=== PATIENT | male | born 1990 | race African-American/Black ===

== ENCOUNTER 2019-11-27 01:13 | Emergency (ER) | payer SELFPAY ==
[2019-11-27] MEDS ORDERED: Ondansetron 4 MG/2 ML SDV IVPUSH ONE (01:32)
[2019-11-27] MEDS ORDERED: Pantoprazole 40 MG Vial IVPUSH ONE (01:33)
--- NOTE | 2019-11-27 01:36 | EDM.PDOC ---
ED HPI GENERAL MEDICAL PROBLEM - General Chief Complaint: Gastrointestinal Problem Stated Complaint: [facility] Time Seen by Provider: 11/27/19 01:21 Source of Information: Reports: Patient History Limitations: Reports: No Limitations - History of Present Illness INITIAL COMMENTS - FREE TEXT/NARRATIVE: This is a 29-year-old male. Tonight he had what is called sloppy Smith. Apparently was made about 2 days ago and they have not been keeping it refrigerated and did have some meat and it. After eating it he began to feel somewhat nauseated and was on the verge of vomiting when he passed out. When he awoke he did vomit and was having some abdominal pain. He did drink 2 [place] Light oranges prior to vomiting as well. He says he is feeling a little better now although he still has a lot of epigastric pain. He denies any other acute symptoms. He has had no fever no chills no cough no congestion and no recent illnesses. Epigastric Pain Score (Numeric/FACES): 8 - Related Data Allergies Allergy/AdvReac Type Severity Reaction Status Date / Time No Known Allergies Allergy Verified 11/27/19 01:20 Home Meds: Home Meds Ondansetron [Zofran] 4 mg PO Q6H PRN #12 tab 11/27/19 [Rx] Past Medical History Oncologic (Cancer) History: Reports: Other (See Below) Other Oncologic History: cancer when he was 14 years old Social & Family History - Tobacco Use Smoking Status *Q: Former Smoker Used Tobacco, but Quit: Yes Month/Year Tobacco Last Used: 11/2019 - Recreational Drug Use Recreational Drug Use: Yes Drug Use in Last 12 Months: Yes Recreational Drug Type: Reports: Marijuana/Hashish Recreational Drug Use Frequency: Socially ED ROS GENERAL - Review of Systems Review Of Systems: See Below Constitutional: Denies: Fever, Chills HEENT: Reports: No Symptoms Respiratory: Denies: Shortness of Breath, Cough Cardiovascular: Reports: No Symptoms Endocrine: Reports: No Symptoms GI/Abdominal: Reports: Abdominal Pain, Nausea, Vomiting. Denies: Diarrhea : Reports: No Symptoms Musculoskeletal: Reports: No Symptoms Skin: Reports: No Symptoms Neurological: Reports: No Symptoms Psychiatric: Reports: No Symptoms Hematologic/Lymphatic: Reports: No Symptoms ED EXAM, GI/ABD - Physical Exam Exam: See Below Exam Limited By: No Limitations General Appearance: Alert, WD/WN, No Apparent Distress Eyes: Bilateral: Normal Appearance Ears: Normal External Exam, Normal Canal, Normal TMs Throat/Mouth: Normal Voice, No Airway Compromise Head: Normocephalic Neck: Supple Respiratory/Chest: No Respiratory Distress, Lungs Clear, Normal Breath Sounds Cardiovascular: Regular Rate, Rhythm, No Murmur, Tachycardia GI/Abdominal Exam: Soft, Other (He does have epigastric tenderness on palpation but no right upper quadrant or left upper quadrant or lower abdominal tenderness, bowel sounds are decreased) Back Exam: Full Range of Motion Extremities: Normal Inspection, Normal Range of Motion Neurological: Alert, Oriented Psychiatric: Normal Affect, Normal Mood Skin Exam: Warm, Dry Course - Vital Signs Last Recorded V/S: Last Vital Signs Temp 98.6 F 11/27/19 01:17 Pulse 118 H 11/27/19 01:17 Resp 13 11/27/19 01:17 BP 149/94 H 11/27/19 01:17 Pulse Ox 95 11/27/19 01:17 - Orders/Labs/Meds Orders: Active Orders 24 hr Category Date Time Status Sodium Chloride 0.9% [Normal Saline] 1,000 ml Med 11/27/19 01:45 Active IV ASDIRECTED Medication Orders Sodium Chloride (Normal Saline) 1,000 mls @ 1,000 mls/hr IV ASDIRECTED ERIKA Last Admin: 11/27/19 01:57 Dose: 1,000 mls/hr Documented by: OFELIA Labs: Laboratory Tests 11/27/19 11/27/19 Range/Units 01:45 01:45 WBC 8.26 (4.23-9.07) K/mm3 RBC 4.74 (4.63-6.08) M/mm3 Hgb 15.1 (13.7-17.5) gm/dl Hct 44.0 (40.1-51.0) % MCV 92.8 H (79.0-92.2) fl MCH 31.9 (25.7-32.2) pg MCHC 34.3 (32.2-35.5) g/dl RDW Std Deviation 41.5 (35.1-43.9) fL Plt Count 424 H (163-337) K/mm3 MPV 8.6 L (9.4-12.3) fl Neut % (Auto) 39.9 (34.0-67.9) % Lymph % (Auto) 52.2 (21.8-53.1) % [place] % (Auto) 6.9 (5.3-12.2) % Eos % (Auto) 0.8 (0.8-7.0) Baso % (Auto) 0.1 (0.1-1.2) % Neut # (Auto) 3.29 (1.78-5.38) K/mm3 Lymph # (Auto) 4.31 H (1.32-3.57) K/mm3 [place] # (Auto) 0.57 (0.30-0.82) K/mm3 Eos # (Auto) 0.07 (0.04-0.54) K/mm3 Baso # (Auto) 0.01 (0.01-0.08) K/mm3 Sodium 141 (136-145) mEq/L Potassium 3.7 (3.5-5.1) mEq/L Chloride 102 (98-107) mEq/L Carbon Dioxide 29 (21-32) mEq/L Anion Gap 13.7 (5-15) BUN 12 (7-18) mg/dL Creatinine 1.1 (0.7-1.3) mg/dL Est Cr Clr Drug Dosing TNP Estimated GFR (MDRD) > 60 (>60) mL/min BUN/Creatinine Ratio 10.9 L (14-18) Glucose 138 H (74-106) mg/dL Calcium 8.6 (8.5-10.1) mg/dL Total Bilirubin 0.7 (0.2-1.0) mg/dL AST 27 (15-37) U/L ALT 39 (16-63) U/L Alkaline Phosphatase 70 (46-116) U/L Total Protein 7.8 (6.4-8.2) g/dl Albumin 4.3 (3.4-5.0) g/dl Globulin 3.5 gm/dL Albumin/Globulin Ratio 1.2 (1-2) Lipase 62 L (73-393) U/L Ethyl Alcohol 0.15 (0.00) gm% Meds: Medications Generic Name Dose Route Start Last Admin Trade Name Freq PRN Reason Stop Dose Admin Sodium Chloride 1,000 mls @ 1,000 mls/hr 11/27/19 01:45 11/27/19 01:57 Normal Saline IV 1,000 mls/hr ASDIRECTED ERIKA Administration Discontinued Medications Generic Name Dose Route Start Last Admin Trade Name Minna PRN Reason Stop Dose Admin Ondansetron HCl 4 mg 11/27/19 01:32 11/27/19 01:57 Zofran IVPUSH 11/27/19 01:33 4 mg ONETIME ONE Administration Pantoprazole Sodium 40 mg 11/27/19 01:33 11/27/19 01:57 Protonix Iv IVPUSH 11/27/19 01:34 40 mg ONETIME ONE Administration - Re-Assessments/Exams Free Text/Narrative Re-Assessment/Exam: 11/27/19 05:29 The patient is feeling much better. He wants to go home. I spoke to him regarding his lab results they were essentially within normal limits. Departure - Departure Time of Disposition: 05:29 Disposition: Home, Self-Care 01 Condition: Fair Clinical Impression: Food poisoning, Vasovagal syncope, Alcohol ingestion Nausea & vomiting Qualifiers: Vomiting type: unspecified Vomiting Intractability: non-intractable Qualified Code(s): R11.2 - Nausea with vomiting, unspecified Abdominal pain Qualifiers: Abdominal location: epigastric Qualified Code(s): R10.13 - Epigastric pain - Discharge Information *PRESCRIPTION DRUG MONITORING PROGRAM REVIEWED*: Not Applicable *COPY OF PRESCRIPTION DRUG MONITORING REPORT IN PATIENT BARBI: Not Applicable Prescriptions: Ondansetron [Zofran] 4 mg PO Q6H PRN #12 tab PRN Reason: Nausea Instructions: Nausea and Vomiting, Adult, Food Poisoning Referrals: PCP,Not In Area [Primary Care Provider] - Forms: ED Department Discharge Additional Instructions: Stay on a easy to digest diet such as crackers banana yogurt, avoid vegetables and meat for the next 24 to 48 hours since they are hard to digest, use the Zofran as needed for nausea and vomiting, rest and sleep for the next 24 hours, return to the ER if needed or follow-up with your primary care provider as needed Sepsis Event Note (ED) - Evaluation Sepsis Screening Result: No Definite Risk - Focused Exam Vital Signs: Vital Signs Temp Pulse Resp BP Pulse Ox 11/27/19 01:17 98.6 F 118 H 13 149/94 H 95 - My Orders Last 24 Hours: My Active Orders 11/27/19 01:45 Sodium Chloride 0.9% [Normal Saline] 1,000 ml IV ASDIRECTED - Assessment/Plan Last 24 Hours: My Active Orders 11/27/19 01:45 Sodium Chloride 0.9% [Normal Saline] 1,000 ml IV ASDIRECTED
[2019-11-27] MEDS ORDERED: Sodium Chloride 0.9% 1,000 ML IV SCH (01:45)
== END 2019-11-27 05:45 | disposition home or self-care (01) ==
LOC: JD.ED 01:13
DX: A05.9 Bacterial foodborne intoxication, unspecified (principal); T51.91XA Toxic effect of unspecified alcohol, accidental (unintentional), initial encounter; R55 Syncope and collapse; Z87.891 Personal history of nicotine dependence
CPT/HCPCS: 36415; 80053; 80307; 83690; 85025; 96361; 96374; 96375; 99284; C9113; J2405; J7030; 99283